=== PATIENT | female | born 1990 | race Caucasian/White ===

== ENCOUNTER 2018-03-23 23:48 | Emergency (ER) | payer MEDICAID ==
[~2018-03-23] VITALS: Ht 152.4 cm; Wt 64.9 kg
[2018-03-24 00:19] VITALS: BP_SYST 104
--- NOTE | 2018-03-24 00:43 | NUR ---
Patient to ER bed 4 to gown for evaluation. Side rails up. Report given to Mehnaz CELIS.
--- NOTE | 2018-03-24 00:56 | NUR ---
Patient to ER C/O painful lump to left breast. States lump since october but "now feels worse" tender with palpation. States lump "gets bigger than goes away" no errythema or swelling noted. No signs of acute distress.
--- NOTE | 2018-03-24 01:10 | NUR ---
ER MD Flash Gibson at bedside evaluating the patient
[2018-03-24 01:47] LABS: BILIRUBIN,URINE NEGATIVE (NEGATIVE); BLOOD, URINE NEGATIVE (NEGATIVE); CLARITY/URINE CLEAR (CLEAR); COLOR,URINE YELLOW (YELLOW); GLUCOSE,URINE NEGATIVE (NEGATIVE); KETONES,URINE NEGATIVE (NEGATIVE); LEUKOCYTE ESTERASE ,URINE TRACE (NEGATIVE); NITRITE, URINE NEGATIVE (NEGATIVE); PROTEIN URINE NEGATIVE (NEGATIVE); UROBILINOGEN,URINE 0.2 (0.2-1.0)
[2018-03-24 02:00] VITALS: BP_SYST 112
--- NOTE | 2018-03-24 02:00 | NUR ---
Patient given written and verbal discharge instructions and verbalizes understanding. ER MD Flash Gibson discussed with patient the results and treatment provided. Patient in stable condition. ID arm band removed. Patient educated on pain management and to follow up with PMD. Pain Scale 0/10. Opportunity for questions provided and answered. Medication side effect fact sheet provided.
[2018-03-24 02:05] LABS: BACTERIA,URINE FEW /HPF (None Seen); RBC,URINE 0-3 /HPF (0-3)
== END 2018-03-24 02:00 | disposition home or self-care (01) ==
LOC: SED 23:48
DX: N63.20 Unspecified lump in the left breast, unspecified quadrant (principal); Z88.1 Allergy status to other antibiotic agents; Z88.8 Allergy status to other drugs, medicaments and biological substances
CPT/HCPCS: 81000-TC; 81025; 87086; 99284